=== PATIENT | female | born 1985 | race Caucasian/White ===

== ENCOUNTER 2019-10-04 01:55 | Day surgery (SDC) | payer OTHER, SELFPAY ==
[2019-09-19 11:01] VITALS: BMI 22.4
[2019-10-04] VITALS (10 sets, daily range): BP systolic 98–118; BP diastolic 54–86; PULSE 61–97; RESP 13–18; TEMP 36.3–36.6; O2SAT 100
--- NOTE | 2019-10-04 08:26 | PM.IMHP ---
H&P: HPI History of Present Illness Chief complaint: Abnormal Bleeding/ Pelvic Pain/ Enlarged Uterus Narrative: Madeline Andrade is a 34 year old female who presented with abnormal uterine bleeding and pelic pain. Pt was found to have an enlarged uterus secondary to uterine fibroids. Endometrial biopsy was performed in office with was negative for hyperplasia or malignancy. She has tried multiple iuds without improvement of sypmtoms. She declined medical management and desires definitive management via hysterectomy. Review of Systems Review of Systems: All systems reviewed & are unremarkable except as noted in HPI and below Meds Home Medications and Allergies Home Medications Medication Instructions Recorded Confirmed Type acetaminophen-codeine 1 tablet PO Q4H PRN 09/19/19 09/19/19 History [Tylenol-Codeine #3] naproxen sodium 880 mg PO Q4-6H PRN 09/19/19 09/19/19 History sumatriptan succinate 100 mg PO DIRECTED PRN 09/19/19 09/19/19 History topiramate 100 mg PO HS 09/19/19 09/19/19 History Allergies Allergy/AdvReac Type Severity Reaction Status Date / Time latex Allergy Mild Rash Unverified 09/19/19 11:04 tramadol AdvReac MIGRAINES, Verified 09/19/19 11:05 VOMITING Exam Const: General: comfortable and no acute distress Neck: Neck: no JVD Lymphatic: lymphadenopathy not noted Resp: Effort & Inspection: normal respiratory effort Auscultation: clear to auscultation bilaterally Cardio: Rate: regular rate Rhythm: regular rhythm GI: Inspection: non-distended GI Palp: Yes Soft to palpation, No Tenderness to palpation present (GI) and No Guarding due to palpation present (GI) Auscultation: normal bowel sounds : External Female Exam: normal external appearance and normal appearance of the urethra Speculum Exam - Vagina: normal appearance of the vagina, normal vaginal discharge and No vaginal bleeding Speculum Exam - Cervix: normal appearance of the cervix and normal vervical discharge Bimanual exam- vagina & uterus: non-tender, no cervical motion tenderness and enlarged Bimanual Exam- Adnexa, other: normal adnexae Skin: General skin exam: normal color Neuro: General: gait normal Speech: normal speech Extrem: General: normal to inspection Psych: Mental Status: mental status grossly normal Assessment and Plan Assessment and plan (1) Abnormal uterine bleeding: Code(s): N93.9 - Abnormal uterine and vaginal bleeding, unspecified Status: Acute Assessment and Plan: pt with long h/o AUB and pain failed IUD treatment declines medical management endometrial biopsy negative for hyperplasia/malignancy pt desires definitive management via hysteretomy plan for robotic TLH/BS (2) Pelvic pain: Code(s): R10.2 - Pelvic and perineal pain Status: Acute
--- NOTE | 2019-10-04 11:04 | WPDANESEPPF ---
Anes - Initial Pre Proc Eval Procedure: Operation Date: 10/04/19 12:00 Proposed Procedures p Robotic Assisted Total Vaginal Hysterectomy, Bilateral Salpingectomy - Martin Lane MD Date/Time: 10/04/19 11:04 Surgeon: Martin Lane MD Pre Op Diagnosis: Abnormal Bleeding/ Pelvic Pain/ Enlarged Uterus Patient Data Age: 34 Gender: F Height: 5 ft 5 in Weight: 61.24 kg Allergies Allergy/AdvReac Type Severity Reaction Status Date / Time latex Allergy Mild Rash Unverified 09/19/19 11:04 tramadol AdvReac MIGRAINES, Verified 09/19/19 11:05 VOMITING Home Medications Medication Instructions Recorded Confirmed Type acetaminophen-codeine 1 tablet PO Q4H PRN 09/19/19 09/19/19 History [Tylenol-Codeine #3] naproxen sodium 880 mg PO Q4-6H PRN 09/19/19 09/19/19 History sumatriptan succinate 100 mg PO DIRECTED PRN 09/19/19 09/19/19 History topiramate 100 mg PO HS 09/19/19 09/19/19 History Patient hx anesthesia problems: none Family hx anesthesia problems: none [facility] Past Medical History Medical History (Updated 10/04/19 @ 11:08 by Bryon Butts MD) Anxiety Chiari I malformation Anes - Eval Final PreProcedure Day of Procedure 10/04/19 11:04 Patient weight: normal Heart: regular rate and rhythm Lungs: clear to auscultation Airway: Mallampati scale class II Neurological: alert and oriented Last oral intake: >/= 8 hours ASA classification: II Emergent: no Anesthetic plan: proceed Anesthesia type and monitoring: general ETT and standard monitoring Informed Consent: The patient's anesthetic plan and its attendant risks and benefits were discussed with the patient/family/POA. Questions were solicited and answers provided to the satisfaction of the patient/family/POA.
[2019-10-04] MEDS: LACTATED RINGERS 1,000 ML 30 ML IV CONT ×3 (11:09→15:45)
[2019-10-04] MEDS: ceFAZolin 2 GM/D5W 50 ML 2 GM/50 ML BAG IVPB (12:05)
[2019-10-04] MEDS: LIDO 1%/EPINEPHRINE 1:100,000 20 ML VIAL 10 ML INFILTRATE (12:20)
--- NOTE | 2019-10-04 13:10 | SUR.OPER ---
LATEX FREE SURGERY VERIFIED WITH ALL TEAM MEMBERS AND ANESTHESIA WITH TIME OUT. PATIENT MAINTAINS POSITION AND URINE REMAINS YELLOW.
[2019-10-04] MEDS: KETOROLAC 30 MG/ML VIAL (*BKC) IV PUSH (13:28)
--- NOTE | 2019-10-04 13:41 | PM.PROC ---
Procedure Note - Detailed Date of procedure: 10/04/19 Pre-op diagnosis: Abnormal Bleeding/ Pelvic Pain/ Enlarged Uterus Post-op diagnosis: same Procedure performed: Robotic assisted total laparoscopic hysterectomy bilateral salpingectomy Description of procedure: PROCEDURE IN DETAIL: After the patient was appropriately consented she was taken to the operating room where she was transferred to the table in a dorsal supine position. General anesthesia was then induced with endotracheal intubation. The patient was transferred to a dorsal lithotomy position using adjustable yellow-fin stirrups. Her position was adjusted for appropriate support of her lower back and lower extremities. The patient was prepped and draped. A transurethral kong catheter was place. The cervix was sequentially dilated and a [employer] graphic design specialist uterine manipulator placed in typical fashion about a 3.5 cm JOSE DAVID ring. Gloves were changed. After confirmation of a functioning orogastric tube, lidocaine was injected at Rodriguez's point in the LUQ and a 5mm incision was made. A 5mm Optiview trocar was then inserted into the abdominal cavity under direct visualization and done so without complication. The abdomen was then insufflated with approximately 2-3L of CO2 establishing a pneumoperitoneum and the patient was placed in Trendelenburg position. Just above the umbilicus in the midline, a 10mm incision made after injection of lidocaine and a 12mm bladeless trocar advanced into the abdominal cavity under direct visualization without incident. We subsequently placed two robotic ports in a similar fashion, one in the left mid-quadrant and one in the right, 10cm lateral to the midline port. The robot was then docked. The Left fallopian tube was identified out to the fimbrae. The fallopian tube was then coagulated and ligated along the inferior mesosalpinx toward the uterus. The utero-ovarian ligament was identified and ligated. The Left round ligament was divided and the posterior aspect of the broad ligament was then skeletonized down to the level of the internal cervical os, mobilizing the ureter laterally. The bladder flap was then created sharply. The ipsilateral uterine artery was skeletonized, bipolar cauterized and transected. A similar procedure was performed on the contralateral side, developing the pelvic spaces, coagulating and dividing the IP away from the ureter, completing the bladder flap, and skeletonizing, ligating, and dividing the uterine artery on this side. We ensured the vaginal pneumo-occluder balloon was insufflated and made a circumferential colpotomy using monopolar current. The uterus, cervix, and bilateral tubes were then delivered transvaginally. I then re-approximated the colpotomy with a single interuppted 0-vicryl at the left apex and running #1 PDO Quill suture in 2 layers. Following this dissection, the abdomen and pelvis were copiously irrigated and all surgical sites found to be hemostatic. Skin sites were reapproximated with 4-0 Vicryl in a subcuticular fashion. Dermabond was placed. The patient tolerated the procedure well. Sponge, needle and instrument counts were correct x 2 and the patient was taken to recovery in stable condition. Ancef was given for antimicrobial prophylaxis. The patient had SCD's on for VTE prophylaxis during the entire procedure. Anesthesia: GETA Surgeon: Martin Lane MD Estimated blood loss (mL): 50 IV fluids (mL): 1,500 Urine output (mL): 150 Drains: No Packing: No Pathology: yes (uterus, cervix, bilateral fallopian tubes, bilateral ovaries ) Complications: No immediate complications Condition: stable Disposition: PACU
[2019-10-04] MEDS: ONDANSETRON INJ 4 MG/2 ML VIAL IV PUSH (14:55)
[2019-10-04] MEDS: HYDROMORPHONE HCL 1 MG/ML INJ 0.5 MG IV PUSH ×2 (15:25→15:38)
[2019-10-04] MEDS: SCOPOLAMINE 1.5 MG PATCH TRANSDERM (15:26)
--- NOTE | 2019-10-04 17:09 | SUR.PHASEII ---
1704 PT MEETS ANESTHESIA DISCHARGE CRITERIA. DISCHARGE INSTRUCTIONS GIVEN TO PT & SPOUSE- ALL QUESTIONS ANSWERED. PT STATES SHE IS READY TO GO HOME.
== END 2019-10-04 17:08 | disposition home or self-care (01) ==
PROVIDERS: PCP Internal Medicine; Visit Provider Student in an Organized Health Care Education/Training Program
PROC: (CPT 58552; principal; 2019-10-04 12:00)
DX: N93.9 Abnormal uterine and vaginal bleeding, unspecified (principal); N72 Inflammatory disease of cervix uteri; N88.8 Other specified noninflammatory disorders of cervix uteri; N80.0 Endometriosis of uterus; R10.2 Pelvic and perineal pain; G93.5 Compression of brain; F41.9 Anxiety disorder, unspecified
CPT/HCPCS: 58552; S2900; 88307; A9270; J0131; J0690; J1100; J1170; J1200; J1885; J2250; J2405; J2704; J2710; J3010; J7030; J7120